=== PATIENT | female | born 1960 | race Caucasian/White ===

== ENCOUNTER 2018-07-21 13:44 | Outpatient (CLI) | payer OTHER ==
[2018-07-21] MEDS ORDERED: OMNIPAQUE 350 MG/ML, 75ML BOTTLE ONE (15:12)
== END 2018-07-21 23:59 | disposition home or self-care (01) ==
LOC: CFH 13:44
PROVIDERS: ATTEND Internal Medicine
DX: J43.2 Centrilobular emphysema (principal)
CPT/HCPCS: 71260; Q9967

== ENCOUNTER 2019-09-02 13:53 | Outpatient (CLI) | payer BC, OTHER | END 2019-09-02 23:59 | disposition home or self-care (01) | LOC: CFH 13:53 | PROVIDERS: ATTEND Internal Medicine | DX: Z12.31 Encounter for screening mammogram for malignant neoplasm of breast (principal) | CPT/HCPCS: 76641; 77063; 77067 ==